=== PATIENT | male | born 1980 | race Caucasian/White ===

== ENCOUNTER 2016-04-10 17:17 | Emergency (ER) | payer BC, OTHER ==
[2016-04-10 17:31] VITALS: BP 137/85
--- NOTE | 2016-04-10 17:33 | UC ---
Back Pain HPI - HPI Summary HPI Summary: The patient comes in today for: 1. 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 Standing up helps. Squatting make it worse. Quality: Sharp-stabbing. Region: Lower back (left and right). Severity: 8-9/10 Time: Constant. 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 Home Rx: Naproxen 500 mg this AM (early this AM around 5 AM), and Tylenol 650 mg, (4 today). Previous treatment: Icing, heat compresses, stretching. Fevers: None Unexpected weight loss: None. Numbness or weakness: No numbness, and weakness "of lower back." Bowel/bladder incontinence: * - History of Current Complaint Stated Complaint: BACK INJURY Time Seen by Provider: 04/10/16 17:20 Hx Obtained From: Patient - Allergies/Home Medications Allergies/Adverse Reactions: Allergies Allergy/AdvReac Type Severity Reaction Status Date / Time No Known Allergies Allergy Verified 10/20/15 15:59 PMH/Surg Hx/FS Hx/Imm Hx Previously Healthy: Yes - "Lazy eye" Endocrine History Of: Denies: Diabetes, Thyroid Disease, Hyperthyroidism, Hypothyroidism, Dyslipidemia Cardiovascular History Of: Denies: Cardiac Disorders, Hypertension, Pacemaker/ICD, Myocardial Infarction , Congestive Heart Failure, Atrial Fibrillation, Deep Vein Thrombosis, Bleeding Disorders Respiratory History Of: Denies: COPD, Asthma, Bronchitis, Pneumonia, Pulmonary Embolism GI/ History Of: Denies: Gastroesophageal Reflux, Ulcer, Gastrointestinal Bleed, Gall Bladder Disease, Kidney Stones, Diverticulitis, Renal Disease, Urosepsis Neurological History Of: Denies: TIA, CVA, Dementia, Seizures, Migraine Psychological History Of: Denies: Anxiety, Depression, Bipolar Disorder, Schizophrenia, Post Traumatic Stress Disorder Cancer History Of: Denies: Lung Cancer, Colorectal Cancer, Breast Cancer, Prostate Cancer, Cervical Cancer Other History Of: Negative For: HIV, Hepatitis B, Hepatitis C, Anticoagulant Therapy - Surgical History Surgical History: Yes Surgery Procedure, Year, and Place: cyst removed behind right ear - Family History Known Family History: Positive: Hypertension, Diabetes - Social History Occupation: Employed Full-time Alcohol Use: Rare Substance Use Type: None Smoking Status (MU): Heavy Every Day Tobacco Smoker Type: Cigarettes Amount Used/How Often: 1/2 ppd, 15+ YEARS Household Exposure Type: Cigarettes Review of Systems Constitutional: Negative Skin: Negative Eyes: Negative ENT: Negative Respiratory: Negative Cardiovascular: Negative Gastrointestinal: Negative Genitourinary: Negative Musculoskeletal: Arthralgia, Myalgia All Other Systems Reviewed And Are Negative: Yes Physical Exam Triage Information Reviewed: Yes Appearance: Well-Appearing, No Pain Distress, Well-Nourished Vital Signs Reviewed: Yes Eyes: Positive: Conjunctiva Clear. Negative: Discharge ENT: Positive: Hearing grossly normal. Negative: Pharyngeal erythema, Nasal congestion, Nasal drainage, TM bulging, TM dull, TM red, Tonsillar swelling, Tonsillar exudate Dental: Negative: Gross Decay/Caries @, Dental Fracture @ Neck: Positive: Supple, Nontender, No Lymphadenopathy. Negative: Nuchal Rigidity Respiratory: Positive: Lungs clear, No respiratory distress, No accessory muscle use. Negative: Crackles, Wheezing Cardiovascular: Positive: RRR, No Murmur Abdomen Description: Positive: Nontender, No Organomegaly, Soft. Negative: Distended, Guarding Musculoskeletal: Positive: Strength Intact, No Edema, Other: - Back: The has some psychomotor slowing and guarding moving from the chair to the examination table. DTR: Patellar: 2+/2 x 2. Achilles: 1/2 x 2. SLR: None. There is tenderness to palpation of the right and left paraspinous musculature in the lumbar region. He has some limitation of flexion, extension, and bilateral flexion. Neurological: Positive: Alert, Muscle Tone Normal Psychological: Positive: Age Appropriate Behavior, Consolable Skin: Negative: rashes, breakdown Back Pain Course/Dx - Differential Dx/Diagnosis Differential Diagnosis/HQI/PQRI: Renal Colic, Strain, Sprain Provider Diagnoses: Lower back strain Discharge - Discharge Plan Condition: Stable Disposition: HOME Patient Education Materials: Low Back Strain (ED) Referrals: Radha Haines MD [Primary Care Provider] - 1 Week (Please see your primary care provider in a week to see how well you are doing. If you get worse, please be seen sooner in the ER or through us.)
== END 2016-04-10 18:15 | disposition home or self-care (01) ==
LOC: UCEAST 17:17
DX: S39.012A Strain of muscle, fascia and tendon of lower back, initial encounter (principal); X50.0XXA Overexertion from strenuous movement or load, initial encounter; Y93.89 Activity, other specified; Y92.9 Unspecified place or not applicable; Y99.0 Civilian activity done for income or pay; F17.210 Nicotine dependence, cigarettes, uncomplicated
CPT/HCPCS: 99202; G0463

== ENCOUNTER 2016-04-15 14:28 | Emergency (ER) | payer OTHER ==
[2016-04-15 14:42] VITALS: BP 136/82
--- NOTE | 2016-04-15 15:56 | UC ---
Nataly Kuhn Michael, scribed for Zuleika Novak MD on 04/15/16 at 1522 . Back Pain HPI - HPI Summary HPI Summary: 35 y/o male comes to [facility] presenting with back pain that started 6 days ago. The pt reports he injured his back at work, and the back pain is not alleviated with ice, heat, or stretching. He worked all day on 04/10/16, and after work the pt was seen at [facility] on 04/10/16 for back pain and was prescribed Baclofen during his last visit. He reports that the back pain has worsened to an 8 out of 10 since his last visit. The back pain is aggravated with walking, bending, and lifting. 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 Negative: Bladder Incontinence, Bowel Incontinence - Allergies/Home Medications Allergies/Adverse Reactions: Allergies Allergy/AdvReac Type Severity Reaction Status Date / Time No Known Allergies Allergy Verified 10/20/15 15:59 PMH/Surg Hx/FS Hx/Imm Hx Previously Healthy: Yes - Surgical History Surgical History: Yes Surgery Procedure, Year, and Place: cyst removed behind right ear - Family History Known Family History: Positive: Hypertension, Diabetes - Social History Occupation: Employed Full-time Lives: Alone Alcohol Use: Rare Substance Use Type: None Smoking Status (MU): Heavy Every Day Tobacco Smoker Type: Cigarettes Amount Used/How Often: 1/2 ppd, 15+ YEARS Household Exposure Type: Cigarettes Review of Systems Constitutional: Negative Genitourinary: Negative Musculoskeletal: Arthralgia, Other: - back pain. Neurological: Negative All Other Systems Reviewed And Are Negative: Yes Physical Exam Triage Information Reviewed: Yes Appearance: Well-Appearing, Well-Nourished, Pain Distress Vital Signs: Initial Vital Signs Temp 98.6 F 04/15/16 14:36 Pulse 74 04/15/16 14:36 Resp 18 04/15/16 14:36 BP 136/82 04/15/16 14:36 Pulse Ox 99 04/15/16 14:36 Vital Signs Reviewed: Yes Eyes: Positive: Conjunctiva Clear ENT Exam: Normal Neck: Positive: Supple Respiratory: Positive: Lungs clear, Normal breath sounds, No respiratory distress Cardiovascular: Positive: RRR, No Murmur, Pulses Normal, Brisk Capillary Refill Abdomen Description: Positive: Nontender, Soft. Negative: Splenomegaly Musculoskeletal: Positive: Other: - paraspinous tenderness. no spinal tenderness in lumbar region. Knee reflex:2+ bilaterally. Ankle reflex 1+ bilaterally. Walk on tip toes and heels. Slow in movements and able to get up on exam table. Neurological: Positive: Alert, Muscle Tone Normal Psychological Exam: Normal Skin Exam: Normal Back Pain Course/Dx - Course Course Of Treatment: I-STOP: Most recent- 12/14/[id number] 5 -325 tablet. Quantity:30. Day Supply:5. Total: hydrocodone-acetaminophen 5-325 tablet. Quantity: 170. Day Supply: 25 since September 2015 - Differential Dx/Diagnosis Differential Diagnosis/HQI/PQRI: Compressive Cord Syndrome, Herniated Disc, Strain, Sprain Provider Diagnoses: Tobacco Abuse Disorder. lower back strain. Discharge - Discharge Plan Condition: Stable Disposition: HOME Prescriptions: HYDROcodone/ACETAMIN 5-325 MG* [[place] 5-325 TAB*] 1 tab PO Q4H PRN #18 tab MDD 6 PRN Reason: Severe Pain Patient Education Materials: Low Back Strain (ED) Forms: *Work Release Referrals: Radha Haines MD [Primary Care Provider] - Additional Instructions: You will follow up with Dr. Haines within the next 2 days. RETURN TO URGENT CARE FOR ANY NEW OR WORSENING SYMPTOMS The documentation as recorded by the Nataly scott Michael accurately reflects the service I personally performed and the decisions made by me, Zuleika Novak MD.
== END 2016-04-15 15:46 | disposition home or self-care (01) ==
LOC: UCEAST 14:28
DX: S39.012D Strain of muscle, fascia and tendon of lower back, subsequent encounter (principal); X58.XXXD Exposure to other specified factors, subsequent encounter; F17.210 Nicotine dependence, cigarettes, uncomplicated
CPT/HCPCS: 81002; 87086; 99212; G0463

== ENCOUNTER 2016-08-22 16:15 | Emergency (ER) | payer BC, OTHER ==
[2016-08-22 16:25] VITALS: BP 129/90
--- NOTE | 2016-08-22 18:12 | UC ---
UC Dental HPI - HPI Summary HPI Summary: all of his teeth are bad and today he began to have pain in his upper left jaw and facial swelling, just got dental insurance and is planning to see a dentist - History of Current Complaint Chief Complaint: [place] Stated Complaint: FACIAL SWELLING Time Seen by Provider: 08/22/16 18:03 Hx Obtained From: Patient Onset/Duration: Gradual Onset, Lasting Weeks Severity: Moderate Pain Intensity: 7 Pain Scale Used: 0-10 Numeric Aggravating: Chewing Alleviating: OTC Meds Related History: Previous Dental Care on Same Tooth, Swelling - Allergies/Home Medications Allergies/Adverse Reactions: Allergies Allergy/AdvReac Type Severity Reaction Status Date / Time No Known Allergies Allergy Verified 08/22/16 16:25 PMH/Surg Hx/FS Hx/Imm Hx Previously Healthy: Yes Endocrine History Of: Denies: Diabetes, Thyroid Disease, Hyperthyroidism, Hypothyroidism, Dyslipidemia Cardiovascular History Of: Denies: Cardiac Disorders, Hypertension, Pacemaker/ICD, Myocardial Infarction , Congestive Heart Failure, Atrial Fibrillation, Deep Vein Thrombosis, Bleeding Disorders Respiratory History Of: Denies: COPD, Asthma, Bronchitis, Pneumonia, Pulmonary Embolism GI/ History Of: Denies: Gastroesophageal Reflux, Ulcer, Gastrointestinal Bleed, Gall Bladder Disease, Kidney Stones, Diverticulitis, Renal Disease, Urosepsis Neurological History Of: Denies: TIA, CVA, Dementia, Seizures, Migraine Psychological History Of: Denies: Anxiety, Depression, Bipolar Disorder, Schizophrenia, Post Traumatic Stress Disorder Cancer History Of: Denies: Lung Cancer, Colorectal Cancer, Breast Cancer, Prostate Cancer, Cervical Cancer Other History Of: Negative For: HIV, Hepatitis B, Hepatitis C, Anticoagulant Therapy - Surgical History Surgical History: Yes Surgery Procedure, Year, and Place: cyst removed behind right ear - Family History Known Family History: Positive: Unknown, Hypertension, Diabetes - Social History Occupation: Employed Full-time Lives: With Family Alcohol Use: Rare Substance Use Type: None Smoking Status (MU): Heavy Every Day Tobacco Smoker Type: Cigarettes Amount Used/How Often: 1/2 ppd, 15+ YEARS Household Exposure Type: Cigarettes Cessation Counseling: Counseled 3+Min - 10 Min Review of Systems Constitutional: Negative Skin: Negative Eyes: Negative ENT: Dental Pain Respiratory: Negative Cardiovascular: Negative Gastrointestinal: Negative Genitourinary: Negative Motor: Negative Neurovascular: Negative Musculoskeletal: Negative Neurological: Negative Psychological: Negative All Other Systems Reviewed And Are Negative: Yes Physical Exam Triage Information Reviewed: Yes Appearance: Well-Appearing, Pain Distress, Thin Vital Signs: Initial Vital Signs Temp 98.7 F 08/22/16 16:22 Pulse 85 08/22/16 16:22 Resp 16 08/22/16 16:22 BP 129/90 08/22/16 16:22 Pulse Ox 100 08/22/16 16:22 Vital Signs Reviewed: Yes Eye Exam: Normal Eyes: Positive: Conjunctiva Clear ENT Exam: Normal ENT: Positive: Normal ENT inspection, Hearing grossly normal, Pharynx normal, TMs normal. Negative: Nasal congestion, Nasal drainage, Tonsillar swelling, Tonsillar exudate, Trismus, Muffled/hoarse voice Dental Exam: Normal Dental: Positive: Gross Decay/Caries @ - multiple, Abscess @ - left upper jaw Neck exam: Normal Neck: Positive: Supple, Nontender, No Lymphadenopathy Respiratory Exam: Normal Respiratory: Positive: Chest non-tender, Lungs clear, Normal breath sounds, No respiratory distress, No accessory muscle use Cardiovascular Exam: Normal Cardiovascular: Positive: RRR, No Murmur, Pulses Normal, Brisk Capillary Refill Musculoskeletal Exam: Normal Musculoskeletal: Positive: Strength Intact, ROM Intact, No Edema Neurological Exam: Normal Neurological: Positive: Alert, Muscle Tone Normal Psychological Exam: Normal Skin Exam: Normal Dental Complaint Course/Dx - Course Course Of Treatment: Augmentin, peridex rinse, tylenol, ibuprofen, nicotine cesation information, follow with dentist [place] - Differential Dx/Diagnosis Differential Diagnosis/Dx: Dental Abscess, Dental Caries, Peridontic Disease Provider Diagnoses: Multiple dental caries with abscess, nicotine dependant Discharge - Discharge Plan Condition: Stable Disposition: HOME Prescriptions: Amoxicillin/Clavulanate TAB* [Augmentin TAB 500 mg*] 500 mg PO TID #30 tab Chlorhexidine MOUTHWASH 0.12%* [Peridex Mouth Wash 0.12%*] 15 ml .SEE ORDER BID #[id number] [email or web address] Patient Education Materials: How to Stop Smoking (ED), Dental Abscess (ED), Toothache (ED) Referrals: [facility] [place] [facility] [Outside] - If Needed
== END 2016-08-22 18:15 | disposition home or self-care (01) ==
LOC: UCEAST 16:15
DX: K02.9 Dental caries, unspecified (principal); K04.7 Periapical abscess without sinus; F17.210 Nicotine dependence, cigarettes, uncomplicated
CPT/HCPCS: 99212; G0463

== ENCOUNTER 2018-09-06 20:58 | Emergency (ER) | payer BC ==
[2018-09-06 21:12] VITALS: BP 122/78
--- NOTE | 2018-09-06 21:12 | UC ---
Dental HPI - HPI Summary HPI Summary: multiple rotten and decaying teeth-- pain right upper jaw--- - History of Current Complaint Chief Complaint: UCDentalProblem Stated Complaint: DENTAL COMPLAINT Time Seen by Provider: 09/06/18 21:01 Hx Obtained From: Patient Onset/Duration: Sudden Onset, Lasting Days - 3, Still Present Severity: Severe Aggravating Factor(s): Nothing Alleviating Factor(s): Nothing Related History: Previous Dental Care on Same Tooth - Allergies/Home Medications Allergies/Adverse Reactions: Allergies Allergy/AdvReac Type Severity Reaction Status Date / Time No Known Allergies Allergy Verified 09/06/18 21:12 PMH/Surg Hx/FS Hx/Imm Hx Previously Healthy: Yes Other History Of: Negative For: HIV, Hepatitis B, Hepatitis C, Anticoagulant Therapy - Surgical History Surgical History: Yes Surgery Procedure, Year, and Place: cyst removed behind right ear - Family History Known Family History: Positive: Unknown, Hypertension, Diabetes - Social History Occupation: Employed Full-time Lives: With Family Alcohol Use: Rare Substance Use Type: None Smoking Status (MU): Heavy Every Day Tobacco Smoker Type: Cigarettes Amount Used/How Often: 1/2 ppd, 15+ YEARS Household Exposure Type: Cigarettes Review of Systems All Other Systems Reviewed And Are Negative: Yes Constitutional: Positive: Negative Skin: Positive: Negative Eyes: Positive: Negative ENT: Positive: Dental Pain Respiratory: Positive: Negative Cardiovascular: Positive: Negative Gastrointestinal: Positive: Negative Genitourinary: Positive: Negative Motor: Positive: Negative Neurovascular: Positive: Negative Musculoskeletal: Positive: Negative Neurological: Positive: Negative Psychological: Positive: Negative Is Patient Immunocompromised?: No Physical Exam Triage Information Reviewed: Yes Appearance: Well-Appearing, Well-Nourished, Pain Distress Vital Signs Reviewed: Yes Eye Exam: Normal Eyes: Positive: Conjunctiva Clear ENT Exam: Normal ENT: Positive: Normal ENT inspection, Hearing grossly normal, Pharynx normal, Uvula midline. Negative: Nasal congestion, Nasal drainage, Tonsillar swelling, Tonsillar exudate, Trismus, Muffled voice Dental: Positive: Percussion Tenderness @, Gross Decay/Caries @ Neck exam: Normal Neck: Positive: Supple, Nontender Respiratory Exam: Normal Respiratory: Positive: Chest non-tender, No respiratory distress, No accessory muscle use Cardiovascular Exam: Normal Cardiovascular: Positive: RRR, Pulses Normal, Brisk Capillary Refill Musculoskeletal Exam: Normal Musculoskeletal: Positive: Strength Intact Neurological Exam: Normal Neurological: Positive: Alert Psychological Exam: Normal Skin Exam: Normal Dental Complaint Course/Dx - Course Course Of Treatment: Chlorhexidiene mouth wash, ibuprofen, hydrocodone, amoxicillin dental referral - Differential Dx/Diagnosis Provider Diagnosis: Dental decay, Pain due to dental caries Discharge - Sign-Out/Discharge Documenting (check all that apply): Patient Departure All imaging exams completed and their final reports reviewed: No Studies - Discharge Plan Condition: Stable Disposition: HOME Prescriptions: Amoxicillin PO (*) [Amoxicillin 500 MG CAP*] 500 mg PO TID #29 cap Chlorhexidine MW 0.12% 473ML* [Peridex Mouth Wash 0.12%] 15 ml .SEE ORDER BID # 473 ml Hydrocodone/Acetaminophen [Hydrocodone-Acetamin 5-325 mg] 1 each PO Q6HR #12 tablet MDD 4 Ibuprofen TAB* [Motrin TAB* 600 MG] 600 mg PO Q6H PRN #30 tab PRN Reason: Pain Patient Education Materials: Dental Abscess (ED), Toothache (ED) Referrals: [facility] [Outside] - If Needed Additional Instructions: call dentist Saturday for an appointment - Billing Disposition and Condition Condition: STABLE Disposition: Home
[2018-09-06] MEDS ORDERED: HYDROcodone/ACETAMIN 5-325 MG* 1 TAB PO ONE (21:21)
[2018-09-06] MEDS ORDERED: Amoxicillin PO (*) 500 MG CAP PO ONE (21:22)
== END 2018-09-06 21:37 | disposition home or self-care (01) ==
LOC: UCEAST 20:58
DX: K02.9 Dental caries, unspecified (principal); F17.210 Nicotine dependence, cigarettes, uncomplicated
CPT/HCPCS: 99212; A9270-GY; G0463

== ENCOUNTER 2018-12-16 16:42 | Emergency (ER) | payer BC ==
--- NOTE | 2018-12-16 16:51 | UC ---
Dental HPI - HPI Summary HPI Summary: 38 yo male presents with dental pain. He tells me that he has many broken and decaying teeth throughout his mouth. Most recently further broke a tooth in his left lower jaw. Over the last 2 days has had pain, swelling, and a bad taste from this area. He has been taking tylenol and naproxen with good relief of pain. He is able to tolerate po well. Denies fever or chills. He does not have a dentist, but does have dental insurance. - History of Current Complaint Stated Complaint: TOOTH PAIN Time Seen by Provider: 12/16/18 16:49 Hx Obtained From: Patient Onset/Duration: Gradual Onset Severity: Moderate Pain Intensity: 5 Pain Scale Used: 0-10 Numeric - Allergies/Home Medications Allergies/Adverse Reactions: Allergies Allergy/AdvReac Type Severity Reaction Status Date / Time No Known Allergies Allergy Verified 12/16/18 16:57 Home Medications: Home Medications Naproxen Sodium [Aleve] 1 tab PO BID 12/16/18 [History Confirmed 12/16/18] PMH/Surg Hx/FS Hx/Imm Hx - Additional Past Medical History Additional PMH: None Other History Of: Negative For: HIV, Hepatitis B, Hepatitis C, Anticoagulant Therapy - Surgical History Surgical History: Yes Surgery Procedure, Year, and Place: cyst removed behind right ear - Family History Known Family History: Positive: Unknown, Hypertension, Diabetes - Social History Lives: With Family Alcohol Use: Rare Substance Use Type: None Smoking Status (MU): Heavy Every Day Tobacco Smoker Type: Cigarettes Amount Used/How Often: 1/2 ppd, 15+ YEARS Household Exposure Type: Cigarettes Review of Systems All Other Systems Reviewed And Are Negative: No Constitutional: Positive: Negative Skin: Positive: Negative Eyes: Positive: Negative ENT: Positive: Dental Pain Respiratory: Positive: Negative Cardiovascular: Positive: Negative Neurological: Positive: Negative Psychological: Positive: Negative Physical Exam - Summary Physical Exam Summary: GENERAL: NAD. WDWN. No pain distress. SKIN: No rashes, sores, lesions, or open wounds. HEENT: Head: AT/NC Nose: Nasal mucosa pink and moist. NTTP maxillary and frontal sinus. Throat: Posterior oropharynx without exudates, erythema, or tonsillar enlargement. Uvula midline. NECK: Supple. Nontender. No lymphadenopathy. CHEST: CTAB. No r/r/w. No accessory muscle use. Breathing comfortably and in no distress. CV: RRR. Without m/r/g. Pulses intact. Cap refill <2seconds NEURO: Alert. PSYCH: Age appropriate behavior. Triage Information Reviewed: Yes Vital Signs: Vital Signs: Temp Pulse Resp BP Pulse Ox 98.9 F 77 16 116/86 100 12/16/18 16:50 12/16/18 16:50 12/16/18 16:50 12/16/18 16:50 12/16/18 16:50 Vital Signs Reviewed: Yes Dental: Positive: Percussion Tenderness @ - Tooth 19, Gross Decay/Caries @ - throughout, Dental Fracture @ - Tooth 19 and several others, Abscess @ - Tooth 19, Cellulitis @ - Tooth 19. Negative: Cervical Lymphadenopathy, Bleeding Dental Complaint Course/Dx - Course Course Of Treatment: Tooth 19 fracture and abscess. Rx for amoxicillin and naproxen. He was given a list of local dentists. Advised to call to schedule an appointment for further treatment - Differential Dx/Diagnosis Provider Diagnosis: Dental abscess Discharge ED - Sign-Out/Discharge Documenting (check all that apply): Patient Departure All imaging exams completed and their final reports reviewed: No Studies - Discharge Plan Condition: Stable Disposition: HOME Prescriptions: Amoxicillin PO (*) [Amoxicillin 500 MG CAP*] 500 mg PO Q12H #14 cap Naproxen [Naproxen 500 mg tab] 500 mg PO BID #14 tablet Patient Education Materials: Dental Abscess (ED) Referrals: Radha Haines MD [Primary Care Provider] - Additional Instructions: If you develop a fever, shortness of breath, chest pain, new or worsening symptoms - please call your PCP or go to the ED immediately. Continue taking tylenol/ibuprofen as directed. Please call to schedule an appointment with a dentist - Billing Disposition and Condition Condition: STABLE Disposition: Home
[2018-12-16 16:56] VITALS: BP 116/86
== END 2018-12-16 17:19 | disposition home or self-care (01) ==
LOC: UCEAST 16:42
DX: K04.7 Periapical abscess without sinus (principal); F17.210 Nicotine dependence, cigarettes, uncomplicated
CPT/HCPCS: 99212; G0463